=== PATIENT | male | born 1945 | race Caucasian/White ===

== ENCOUNTER 2016-10-21 12:24 | Inpatient (IN) | payer MEDICARE ==
[~2016-10-21] VITALS: Ht 185.4 cm; Wt 112.9 kg
[2016-10-22] MEDS ORDERED: APTIOM600 MG PO (01:20)
[2016-10-22] MEDS ORDERED: SPIRONOLACTONE25 MG PO (01:21)
[2016-10-22] MEDS ORDERED: PRIMIDONE250 MG PO ×2 (01:21)
[2016-10-22] MEDS ORDERED: HYDRALAZINE HCL50 MG PO (01:22)
[2016-10-22] MEDS ORDERED: MULTIVITAMINS1 EAC1 PO (01:23)
[2016-10-22] MEDS ORDERED: FISH OIL 10001000 MG PO (01:23)
[2016-10-22] MEDS ORDERED: CINNAMON500 MG PO (01:24)
[2016-10-22] MEDS ORDERED: VITAMIN C 500500 MG PO (01:25)
[2016-10-22] MEDS ORDERED: VITAMIN D3 COM1 EACH PO (01:25)
[2016-10-22 10:57] LABS: BUN/CREATININE RATIO 21 (0-10)
[2016-10-22 10:58] LABS: HEMOGLOBIN 12.2 gm/dl (14.0-17.5); RED BLOOD COUNT 3.74 M/UL (4.20-5.50); WHITE BLOOD COUNT 16.7 K/UL (4.5-11.0)
[2016-10-23 06:47] LABS: HEMOGLOBIN 12.2 gm/dl (14.0-17.5); RED BLOOD COUNT 3.72 M/UL (4.20-5.50); WHITE BLOOD COUNT 14.5 K/UL (4.5-11.0)
[2016-10-23 07:18] LABS: BUN/CREATININE RATIO 23 (0-10)
[2016-10-24 06:54] LABS: HEMOGLOBIN 12.4 gm/dl (14.0-17.5); RED BLOOD COUNT 3.81 M/UL (4.20-5.50)
[2016-10-24 06:56] LABS: WHITE BLOOD COUNT 9.1 K/UL (4.5-11.0)
[2016-10-24 07:18] LABS: BUN/CREATININE RATIO 15 (0-10)
[2016-10-24] MEDS ORDERED: SYMBICORT 160-1 INHA INH (10:17)
[2016-10-24] MEDS ORDERED: COREG 12.5MG12.5 MG PO (10:17)
[2016-10-24] MEDS ORDERED: LEVAQUIN750 MG PO (10:17)
== END 2016-10-24 11:15 | disposition home or self-care (01) | DRG 871 ==
LOC: ER1 12:24 → EDSTATUS 14:11 → MED SURG 4 19:54 → ZEROF 19:54 → MED SURG 4 21:38
PROVIDERS: Family Medicine; ADMIT Family Medicine
DX: A41.9 Sepsis, unspecified organism (principal); J18.9 Pneumonia, unspecified organism; J44.1 Chronic obstructive pulmonary disease with (acute) exacerbation; J44.0 Chronic obstructive pulmonary disease with (acute) lower respiratory infection; E87.1 Hypo-osmolality and hyponatremia; G40.909 Epilepsy, unspecified, not intractable, without status epilepticus; I10 Essential (primary) hypertension; E78.5 Hyperlipidemia, unspecified; F32.9 Major depressive disorder, single episode, unspecified; F41.9 Anxiety disorder, unspecified; G47.33 Obstructive sleep apnea (adult) (pediatric); G47.34 Idiopathic sleep related nonobstructive alveolar hypoventilation; Z98.890 Other specified postprocedural states; Z79.899 Other long term (current) drug therapy; Z99.81 Dependence on supplemental oxygen; Z88.0 Allergy status to penicillin; Z87.891 Personal history of nicotine dependence
CPT/HCPCS: 36415; 71010; 71020; 80048; 80053; 82550; 82553; 83605; 83874; 83880; 84484; 85025; 85027; 87040; 94640; 94660; 94664; 96374; 96375; 99285; J0456; J0696; J1650; J1956; J2920; J2930; J7030; J7050; J7509; Q9963

== ENCOUNTER → 2016-12-05 | Outpatient (CLI) | payer MEDICARE ==
[~2016-12-05] MED LIST: APTIOM600 MG PO; CINNAMON500 MG PO; COREG 12.5MG12.5 MG PO; FISH OIL 10001000 MG PO; HYDRALAZINE HCL50 MG PO; LEVAQUIN750 MG PO; MULTIVITAMINS1 EAC1 PO; PRIMIDONE250 MG PO; SPIRONOLACTONE25 MG PO; SYMBICORT 160-1 INHA INH; VITAMIN C 500500 MG PO; VITAMIN D3 COM1 EACH PO
== END ==
LOC: CT 12:32
DX: J18.9 Pneumonia, unspecified organism (principal); R91.8 Other nonspecific abnormal finding of lung field
CPT/HCPCS: 71250

== ENCOUNTER → 2020-09-27 | Outpatient (CLI) | payer MEDICARE, OTHER ==
[~2020-09-27] MED LIST changes: +NORCO 5-325 TA1 EACH PO
== END ==
LOC: KOH-I 12:14
DX: I50.9 Heart failure, unspecified (principal); J44.9 Chronic obstructive pulmonary disease, unspecified
CPT/HCPCS: 71046

== ENCOUNTER → 2020-10-26 | Outpatient (CLI) | payer MEDICARE | LOC: HEART 5 14:12 | DX: I50.9 Heart failure, unspecified (principal); I08.2 Rheumatic disorders of both aortic and tricuspid valves; I37.1 Nonrheumatic pulmonary valve insufficiency; R93.1 Abnormal findings on diagnostic imaging of heart and coronary circulation; I27.20 Pulmonary hypertension, unspecified | CPT/HCPCS: 93306 ==

== ENCOUNTER → 2021-02-27 | Outpatient (CLI) | payer MEDICARE | LOC: KOH-I 11:28 | DX: J43.9 Emphysema, unspecified (principal) | CPT/HCPCS: 71046 ==

== ENCOUNTER → 2021-04-06 | Outpatient (CLI) | payer MEDICARE | LOC: CT 08:00 | DX: R06.02 Shortness of breath (principal); R91.8 Other nonspecific abnormal finding of lung field | CPT/HCPCS: 71260; Q9965 ==

== ENCOUNTER 2021-06-22 09:16 | Emergency (ER) | payer MEDICARE | END 2021-06-22 13:15 | disposition home or self-care (01) | LOC: ER1 09:16 | DX: S01.01XA Laceration without foreign body of scalp, initial encounter (principal); I11.9 Hypertensive heart disease without heart failure; J44.9 Chronic obstructive pulmonary disease, unspecified; W19.XXXA Unspecified fall, initial encounter | CPT/HCPCS: 12002; 70450; 72125; 99284 ==

== ENCOUNTER → 2021-07-17 | Outpatient (CLI) | payer MEDICARE | LOC: KOH-I 11:03 | DX: R51.9 Headache, unspecified (principal) | CPT/HCPCS: 70551 ==

== ENCOUNTER → 2021-09-13 | Outpatient (CLI) | payer MEDICARE | LOC: KOH-I 08-27 14:30 | DX: I61.9 Nontraumatic intracerebral hemorrhage, unspecified (principal); G31.9 Degenerative disease of nervous system, unspecified | CPT/HCPCS: 70450 ==

== ENCOUNTER → 2022-02-08 | Outpatient (CLI) | payer MEDICARE | LOC: MRI 11:00 | DX: G40.909 Epilepsy, unspecified, not intractable, without status epilepticus (principal); R94.02 Abnormal brain scan; I10 Essential (primary) hypertension; Z87.891 Personal history of nicotine dependence; Z79.899 Other long term (current) drug therapy | CPT/HCPCS: 36415; 70553; 82565; A9577 ==

== ENCOUNTER → 2022-03-04 | Outpatient (CLI) | payer MEDICARE | LOC: KOH-I 15:50 | DX: J18.9 Pneumonia, unspecified organism (principal) | CPT/HCPCS: 71046 ==